=== PATIENT | male | born 1980 | race Caucasian/White ===

== ENCOUNTER 2016-09-03 12:06 | Day surgery (SDC) | payer OTHER ==
[2016-09-02 10:56] VITALS: BMI 32.8
[2016-09-03] MEDS ORDERED: PROPOFOL 20 ML ONE ×4 (13:12)
[2016-09-03 14:33] VITALS: TEMP 98.2
[2016-09-03 15:44] VITALS: BP 112/68; PULSE 62
[2016-09-03 15:48] LABS: BASOPHIL 0.4 % (0-2.0); EOSINOPHIL 1.5 % (0-4.5); MCH 29.4 pg (25.7-33.7); MCHC 33.2 g/dl (32.0-35.9); MEAN CELL VOLUME 88.6 fl (80-96); MEAN PLT VOLUME 8.2 fl (7.5-11.1); NEUTROPHILS 58.1 % (42.8-82.8); PLATELET COUNT 364 K/MM3 (134-434); RDW 13.2 % (11.9-15.9); WHITE BLOOD COUNT 10.3 K/mm3 (4.0-10.0)
[2016-09-03 16:13] LABS: ALBUMIN 4.6 g/dl (3.4-5.0); ANION GAP 6 (8-16); BILIRUBIN,TOTAL 0.5 mg/dL (0.2-1.0); CO2 30 mmol/L (21-32); CREATININE 1.3 mg/dL (0.7-1.3); GLUCOSE,RANDOM 127 mg/dL (74-106); SGOT/AST 20 U/L (15-37); SGPT/ALT 30 U/L (12-78); TOT PROT 7.6 g/dl (6.4-8.2)
[2016-09-03 16:14] LABS: ALK PHOS 67 U/L (45-117)
[2016-09-06 16:22] LABS: CHROMOGRANIN A 2 nmol/L (0-5)
[2016-09-07 14:14] LABS: GASTRIN 244 pg/mL (0-115)
--- NOTE | 2016-10-15 13:47 | PATH ---
Surgical Pathology Report Patient Name: GITA MATOS [facility]. Rec. #: [id number] /Age/Gender: 1980 (Age: 35) / M Account: [id number] Location: [facility]-ENDOSCOPY Taken: 09/03/2016 Received: 09/06/2016 Reported: 09/07/2016 Physicians: Shane Terry M.D. Specimen(s) Received A: BX ANTRAL SUBMUCOSAL MASS B: BX ANTRUM C: BX GE JUNCTION Clinical History Antral mass, rectal bleeding Antral submucosal mass, GERD, hiatal hernia, normal colon, hemorrhoidal bleeding Final Diagnosis A. STOMACH, ANTRAL SUBMUCOSAL MASS, BIOPSY: GASTRIC ANTRAL MUCOSA WITH MILD REACTIVE GASTROPATHY. NO DEFINITE SUBMUCOSAL TISSUE IDENTIFIED. IMMUNOSTAIN FOR H. PYLORI IS NEGATIVE. B. STOMACH, ANTRUM, BIOPSY: GASTRIC ANTRAL MUCOSA WITH NO SIGNIFICANT PATHOLOGIC CHANGES. IMMUNOSTAIN FOR H. PYLORI IS NEGATIVE. C. GE JUNCTION, BIOPSY: GASTRIC TYPE MUCOSA WITH CHRONIC INFLAMMATION. NO INTESTINAL METAPLASIA IDENTIFIED (NO BUTTS'S IDENTIFIED). Electronically Signed Александр Kaplan M.D. Gross Description A. Received in formalin, labeled "biopsy antral submucosal mass" are 5 [place], irregular portions of soft tissue ranging from 0.1-0.3 cm. in greatest dimension. The specimens are submitted in toto in one cassette. B. Received in formalin, labeled "biopsy antrum" are 2 santana, irregular portions of soft tissue measuring 0.2 and 0.3 cm. in greatest dimension. The specimens are submitted in toto in one cassette. C. Received in formalin, labeled "biopsy GE junction" are 2 santana, irregular portions of soft tissue averaging 0.3 cm. in greatest dimension. The specimens are submitted in toto in one cassette. DL/09/06/2016 saudi09/06/2016
== END 2016-09-03 15:44 | disposition home or self-care (01) ==
LOC: JOR 12:06 → JASU-ENDO 12:06
PROVIDERS: ATTEND Internal Medicine Gastroenterology
PROC: 0DB68ZX Excision of Stomach, Via Natural or Artificial Opening Endoscopic, Diagnostic (ICD-10-PCS; 2016-09-03)
PROC: 0DJD8ZZ Inspection of Lower Intestinal Tract, Via Natural or Artificial Opening Endoscopic (ICD-10-PCS; 2016-09-03)
PROC: 0DB28ZX Excision of Middle Esophagus, Via Natural or Artificial Opening Endoscopic, Diagnostic (ICD-10-PCS; principal; 2016-09-03 13:00)
DX: K31.9 Disease of stomach and duodenum, unspecified (principal); K29.60 Other gastritis without bleeding; K44.9 Diaphragmatic hernia without obstruction or gangrene; K21.9 Gastro-esophageal reflux disease without esophagitis; K64.8 Other hemorrhoids
CPT/HCPCS: 36415; 80053; 82378; 82941; 85025; 86316; 88305-TC; 88342-TC

== ENCOUNTER 2018-05-28 08:28 | Emergency (ER) | payer OTHER ==
[2018-05-28 08:33] VITALS: BP 139/89; PULSE 66; TEMP 98.6; BMI 30.7
[2018-05-28] MEDS ORDERED: DOXYCYCLINE HYCLATE 100 MG CAPSULE PO ONE ×2 (09:45→09:50)
--- NOTE | 2018-05-28 10:00 | PDOC ---
History of Present Illness - General Chief Complaint: Foreign Body (FB) Stated Complaint: INJURY Time Seen by Provider: 05/28/18 08:49 History Source: Patient Exam Limitations: No Limitations - History of Present Illness Initial Comments: 05/28/18 09:44 Patient is here with her tick embedded in his upper left thigh area noted this morning. Timing/Duration: unsure Severity: mild Past History - Travel Traveled outside of the country in the last 30 days: No Close contact w/someone who was outside of country & ill: No - Past Medical History Allergies/Adverse Reactions: Allergies Allergy/AdvReac Type Severity Reaction Status Date / Time No Known Allergies Allergy Verified 05/28/18 08:33 Home Medications: Ambulatory Orders Omeprazole [Prilosec (RX)] 20 mg PO DAILY 10/28/14 Lisinopril [Zestril] 10 mg PO DAILY 09/02/16 Anemia: No Asthma: No Cancer: No Cardiac Disorders: No CVA: No COPD: No CHF: No Dementia: No Diabetes: No GI Disorders: Yes (GERD, SUBMUCOSAL MASS) Disorders: No HTN: Yes Hypercholesterolemia: Yes Liver Disease: No Seizures: No Thyroid Disease: No - Surgical History Abdominal Surgery: Yes ([facility]) Cardiac Surgery: No Lung Surgery: No Neurologic Surgery: No - Suicide/Smoking/Psychosocial Hx Smoking History: Never smoked Have you smoked in the past 12 months: No Number of Cigarettes Smoked Daily: 6 If you are a former smoker, when did you quit?: 2007 'Breaking Loose' booklet given: 04/13/15 Hx Alcohol Use: No Drug/Substance Use Hx: No Substance Use Type: None Hx Substance Use Treatment: No Review of Systems - Review of Systems Able to Perform ROS?: Yes Is the patient limited Pakistani proficient: Yes Constitutional: Yes: See HPI. No: Symptoms Reported, Fever, Malaise HEENTM: Yes: See HPI. No: Symptoms Reported Integumentary: Yes: Symptoms Reported, See HPI, Other (no erythema, swelling, tenderness at site of tick embedded) All Other Systems: Reviewed and Negative *Physical Exam - Vital Signs Last Vital Signs Temp Pulse Resp BP Pulse Ox 98.6 F 66 18 139/89 99 05/28/18 08:30 05/28/18 08:30 05/28/18 08:30 05/28/18 08:30 05/28/18 08:30 - Physical Exam General Appearance: Yes: Nourished, Appropriately Dressed, Apparent Distress, Mild Distress HEENT: positive: RE, Normal ENT Inspection, TMs Normal, Pharynx Normal Neck: positive: Supple. 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 Wound was cleaned, lidocaine with epi Wheal embedded underneath the tick, and tick was removed completely. Dressed with bacitracin and Band-Aid. Patient tolerated procedure well. Given 200 mg of doxycycline by mouth for the one time dose for noted dear tick exposure and bite. *DC/Admit/Observation/Transfer Diagnosis at time of Disposition: Tick bite of left thigh Qualifiers: Encounter type: initial encounter Qualified Code(s): S70.362A - Insect bite ( nonvenomous), left thigh, initial encounter - Discharge Dispostion Disposition: HOME Condition at time of disposition: Stable Decision to Admit order: No - Referrals Referrals: Gene Portillo [Primary Care Provider] - - Patient Instructions Printed Discharge Instructions: DI for Insect Bites and Stings Additional Instructions: Rest, keep area elevated. Avoid strenuous activity or exercise until wound is healed Use hot soaks to area to bring more blood to the surface and encourage drainage May change dressings as needed to keep clean - Change his dressing daily until the wound is completely healed. May use Tylenol or Motrin for mild pain relief You have been given 200 mg of doxycycline, 1 time treatment for known tick bite. Followup with private physician in 2-3 days for wound check as needed Return to emergency Department for worsening swelling, pain, redness, fevers as needed - Post Discharge Activity
== END 2018-05-28 10:12 | disposition home or self-care (01) ==
LOC: JERFT 08:28
PROC: 0HCJXZZ Extirpation of Matter from Left Upper Leg Skin, External Approach (ICD-10-PCS; principal; 2018-05-28)
DX: S70.362A Insect bite (nonvenomous), left thigh, initial encounter (principal); W57.XXXA Bitten or stung by nonvenomous insect and other nonvenomous arthropods, initial encounter; Y93.89 Activity, other specified; Y92.89 Other specified places as the place of occurrence of the external cause; Y99.8 Other external cause status
CPT/HCPCS: 99281-25

== ENCOUNTER 2020-09-03 20:04 | Emergency (ER) | payer OTHER ==
[2020-09-03 20:30] VITALS: TEMP 98.4; BMI 30.2
[2020-09-03] MEDS ORDERED: CLINDAMYCIN 600MG PREMIX IVPB 600 MG/50 ML BAG IVPB ONE ×2 (23:06→23:08)
[2020-09-03] MEDS ORDERED: ACETAMINOPHEN 500 MG TABLET (FP) PO ONE (23:14)
[2020-09-03 23:27] LABS: BASO % 0.7 % (0-2.0); EOS % 1.2 % (0-4.5); HEMATOCRIT 45.6 % (35.4-49); HEMOGLOBIN 15.7 GM/dL (11.7-16.9); LYMPH % 24.8 % (8-40); MCH 30.3 pg (25.7-33.7); MCHC 34.3 g/dl (32.0-35.9); MEAN CELL VOLUME 88.1 fl (80-96); MEAN PLT VOLUME 7.8 fl (7.5-11.1); NEUT % 67.3 % (42.8-82.8); PLATELET COUNT 354 10^3/uL (134-434); RBC 5.18 M/mm3 (4.00-5.60); RDW 13.6 % (11.9-15.9); WHITE BLOOD COUNT 12.2 K/mm3 (4.0-10.0)
[2020-09-03 23:53] LABS: CALCIUM 9.1 mg/dL (8.5-10.1)
[2020-09-03 23:54] LABS: ALBUMIN 4.2 g/dl (3.4-5.0); BLOOD UREA NITROGEN 20.1 mg/dL (7-18)
[2020-09-03 23:59] LABS: BILIRUBIN,TOTAL 0.5 mg/dL (0.2-1); TOT PROT 7.4 g/dl (6.4-8.2)
[2020-09-04 00:09] LABS: ERYTHROCYTE SEDIMENTATION RATE 2 mm/hr (0-10)
[2020-09-04 02:24] VITALS: BP 123/83; PULSE 63
== END 2020-09-04 02:26 | disposition home or self-care (01) ==
LOC: JER 20:04
DX: L03.116 Cellulitis of left lower limb (principal)
CPT/HCPCS: 36415; 80053; 85025; 85651; 86140; 99283-25

== ENCOUNTER 2021-01-01 07:46 | Day surgery (SDC) | payer OTHER ==
[2020-12-31 18:39] VITALS: BMI 31.7
[2021-01-01 09:32] LABS: BASO % 0.5 % (0-2.0); EOS % 1.8 % (0-4.5); HEMOGLOBIN 17.9 GM/dL (11.7-16.9); LYMPH % 32.4 % (8-40); MCH 30.2 pg (25.7-33.7); MCHC 34.3 g/dl (32.0-35.9); MEAN CELL VOLUME 87.9 fl (80-96); MEAN PLT VOLUME 8.1 fl (7.5-11.1); MONO % 4.1 % (3.8-10.2); NEUT % 61.2 % (42.8-82.8); PLATELET COUNT 395 10^3/uL (134-434); RBC 5.92 M/mm3 (4.00-5.60); RDW 13.8 % (11.9-15.9); WHITE BLOOD COUNT 8.9 K/mm3 (4.0-10.0)
[2021-01-01 09:38] LABS: INR 1.03 (0.83-1.09); PROTHROMBIN TIME (PATIENT) 11.5 SEC (9.7-13.0)
[2021-01-01 09:50] LABS: CHLORIDE 108 mmol/L (98-107); SODIUM 141 mmol/L (136-145)
[2021-01-01 09:52] LABS: ALBUMIN 4.2 g/dl (3.4-5.0); ANION GAP 5 MMOL/L (8-16); BLOOD UREA NITROGEN 15.2 mg/dL (7-18); CALCIUM 9.8 mg/dL (8.5-10.1); CO2 27 mmol/L (21-32); GLUCOSE,RANDOM 110 mg/dL (74-106)
[2021-01-01 09:56] LABS: CREATININE 1.3 mg/dL (0.55-1.3); SGOT/AST 21 U/L (15-37); SGPT/ALT 40 U/L (13-61)
[2021-01-01 09:57] LABS: BILIRUBIN,TOTAL 0.4 mg/dL (0.2-1); TOT PROT 7.7 g/dl (6.4-8.2)
[2021-01-01 09:59] LABS: ALK PHOS 68 U/L (45-117); LDH 167 U/L (87-246)
[2021-01-01] MEDS ORDERED: MIDAZOLAM HCL 2 MG/2 ML SINGLE DOSE VIAL ONE (15:15)
[2021-01-01] MEDS ORDERED: fentaNYL CITRATE 250 MCG/5 ML VIAL ONE (15:15)
[2021-01-01] MEDS ORDERED: PROPOFOL 20 ML ONE ×2 (15:16)
[2021-01-01] MEDS ORDERED: ceFAZolin SODIUM 1 GM VIAL IVPB ONE (15:42)
[2021-01-01] MEDS ORDERED: LIDOCAINE HCL 1%, 10 MG/ML (20ML VIAL) INF ONE (15:55)
[2021-01-01] MEDS ORDERED: BUPIVACAINE HCL/PF 0.5% (5 MG/ML) 30 ML VIAL IJ ONE (16:14)
[2021-01-01] MEDS ORDERED: oxyCODONE HCL 5 MG TABLET PO PRN (16:23)
[2021-01-01] MEDS ORDERED: DEXTROSE 5%-0.45% SALINE 1,000 ML IV SCH (16:30)
[2021-01-01] MEDS ORDERED: oxyCODONE HCL 5 MG TABLET ONE (18:00)
[2021-01-01 19:35] VITALS: BP 125/80; PULSE 70; TEMP 97.8
== END 2021-01-01 19:30 | disposition home or self-care (01) ==
LOC: JASU-SURG 07:46 → EDSTATUS 19:25 → JASU-SURG 19:30
PROVIDERS: ATTEND Urology
PROC: 0VTK0ZZ Resection of Left Epididymis, Open Approach (ICD-10-PCS; 2021-01-01)
PROC: 0VBG0ZZ Excision of Left Spermatic Cord, Open Approach (ICD-10-PCS; 2021-01-01)
PROC: 0VTB0ZZ Resection of Left Testis, Open Approach (ICD-10-PCS; principal; 2021-01-01 14:30)
DX: D07.69 Carcinoma in situ of other male genital organs (principal)
CPT/HCPCS: 36415; 80053; 82105; 83615; 84702; 85025; 85610; 88309-TC; 93005; 93010; 94760; C9803; U0003; U0005